=== PATIENT | female | born 1960 | race Caucasian/White ===

== ENCOUNTER 2018-05-19 12:11 | Outpatient (CLI) | payer OTHER ==
[~2018-05-19 12:11] MED LIST: AMBIEN5 MG; CLONAZEPAM1 MG; CRESTOR10 MG; METFORMIN HCL500 MG
== END 2018-05-19 12:20 | disposition home or self-care (01) ==
LOC: RAD 12:11
DX: I10 Essential (primary) hypertension (principal); M54.5 Low back pain; Z01.810 Encounter for preprocedural cardiovascular examination; E03.8 Other specified hypothyroidism; E78.89 Other lipoprotein metabolism disorders; E11.51 Type 2 diabetes mellitus with diabetic peripheral angiopathy without gangrene

== ENCOUNTER 2018-11-22 10:49 | Emergency (ER) | payer OTHER ==
[~2018-11-22] VITALS: Ht 162.6 cm; Wt 78.9 kg
[2018-11-22] MEDS ORDERED: ATORVASTATIN CA10 MG (11:01)
== END 2018-11-22 13:03 | disposition home or self-care (01) ==
LOC: ER 10:49
DX: J06.9 Acute upper respiratory infection, unspecified (principal)

== ENCOUNTER → 2020-10-12 | Outpatient (CLI) | payer OTHER ==
[~2020-10-12] MED LIST changes: +ATORVASTATIN CA10 MG; +NAPROXEN375 MG PO; +SKELAXIN800 MG PO
== END | disposition home or self-care (01) ==
LOC: PPH VACUNA
DX: Z23 Encounter for immunization (principal)

== ENCOUNTER → 2020-11-02 08:53 | Outpatient (CLI) | payer OTHER | END | disposition home or self-care (01) | LOC: PPH VACUNA 08:53 | DX: Z23 Encounter for immunization (principal) ==

== ENCOUNTER 2020-11-10 19:31 | Emergency (ER) | payer OTHER ==
[~2020-11-10] VITALS: Ht 160 cm; Wt 75.3 kg
[~2020-11-10 19:31] MED LIST changes: -NAPROXEN375 MG PO; -SKELAXIN800 MG PO
[2020-11-10] MEDS ORDERED: NAPROXEN375 MG PO (23:16)
[2020-11-10] MEDS ORDERED: SKELAXIN800 MG PO (23:16)
== END 2020-11-11 00:02 | disposition home or self-care (01) ==
LOC: ER 19:31
DX: S00.83XA Contusion of other part of head, initial encounter (principal); W18.39XA Other fall on same level, initial encounter; Y93.89 Activity, other specified; Y92.098 Other place in other non-institutional residence as the place of occurrence of the external cause; Y99.8 Other external cause status; R55 Syncope and collapse; Z11.52 Encounter for screening for COVID-19

== ENCOUNTER 2021-01-17 15:26 | Outpatient (CLI) | payer OTHER ==
[~2021-01-17 15:26] MED LIST changes: +NAPROXEN375 MG PO; +SKELAXIN800 MG PO
== END 2021-01-17 15:44 | disposition home or self-care (01) ==
LOC: RAD 15:26 → NUCLEAR 01-31 13:00
PROVIDERS: ATTEND Internal Medicine Rheumatology
DX: M15.8 Other polyosteoarthritis (principal)

== ENCOUNTER 2021-03-29 13:20 | Outpatient (CLI) | payer OTHER | END 2021-03-29 13:22 | disposition home or self-care (01) | LOC: NUCLEAR 13:20 | PROVIDERS: ATTEND Student in an Organized Health Care Education/Training Program | DX: M81.0 Age-related osteoporosis without current pathological fracture (principal) ==

== ENCOUNTER 2021-05-25 11:08 | Outpatient (CLI) | payer OTHER | END 2021-05-25 11:34 | disposition home or self-care (01) | LOC: RAD 11:08 → MRI 05-26 11:15 | DX: M54.2 Cervicalgia (principal); M54.12 Radiculopathy, cervical region; M54.6 Pain in thoracic spine; M54.59 Other low back pain; G44.86 Cervicogenic headache | CPT/HCPCS: 72141 ==

== ENCOUNTER 2021-06-27 10:11 | Outpatient (CLI) | payer OTHER | END 2021-06-27 10:33 | disposition home or self-care (01) | LOC: SONOGRAMA 10:11 | PROVIDERS: ATTEND Urology | DX: R31.21 Asymptomatic microscopic hematuria (principal); R31.29 Other microscopic hematuria ==

== ENCOUNTER 2021-08-07 14:02 | Outpatient (CLI) | payer OTHER | END 2021-08-07 14:10 | disposition home or self-care (01) | LOC: RAD 14:02 | PROVIDERS: ATTEND Internal Medicine Rheumatology | DX: M15.8 Other polyosteoarthritis (principal); M11.262 Other chondrocalcinosis, left knee; M11.261 Other chondrocalcinosis, right knee ==

== ENCOUNTER → 2022-01-22 | Emergency (ER) | payer OTHER ==
[~2022-01-22] VITALS: Ht 162.6 cm; Wt 72.6 kg
== END | disposition left against medical advice (07) ==
LOC: ER 01:50
DX: Z53.21 Procedure and treatment not carried out due to patient leaving prior to being seen by health care provider (principal)

== ENCOUNTER 2022-04-03 10:08 | Outpatient (CLI) | payer OTHER | END 2022-04-03 10:30 | disposition home or self-care (01) | LOC: MRI 10:08 | PROVIDERS: ATTEND Orthopaedic Surgery Orthopaedic Surgery of the Spine | DX: M50.00 Cervical disc disorder with myelopathy, unspecified cervical region (principal) | CPT/HCPCS: 72141 ==

== ENCOUNTER 2022-10-24 13:28 | Outpatient (CLI) | payer OTHER | END 2022-10-24 13:35 | disposition home or self-care (01) | LOC: RAD 13:28 | PROVIDERS: ATTEND Surgery Plastic and Reconstructive Surgery | DX: R05.8 Other specified cough (principal) ==